=== PATIENT | male | born 1965 | race Caucasian/White ===

== ENCOUNTER 2025-04-19 13:32 | Emergency (ER) | payer MEDICARE, MEDICAID, SELFPAY ==
[2025-04-19 13:51] VITALS: BP 191/81; PULSE 62; RESP 20; TEMP 36.9; O2SAT 98
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
[2025-04-19 15:06] LABS: Abs Immature Grans 0.02 10^3/uL (0.0-0.06); Absolute Basophil Count 0.01 10^3/uL (0.0-0.2); Absolute Eosinophil Count 0.01 10^3/uL (0.0-0.7); Absolute Lymphocyte Count 1.19 10^3/uL (1.2-3.4); Absolute Monocyte Count 0.48 10^3/uL (0.1-0.8); Basophils % 0.1 %; Eosinophils % 0.1 %; HCT 43.5 % (40.0-50.0); HGB 14.9 g/dL (13.5-17.5); Immature Grans % 0.2 %; Lymphocytes % 14.9 %; MCH 29.5 pg (27.0-33.0); MCHC 34.3 % (32.0-36.0); MCV 86 fL (80-95); MPV 10.6 fL (8.0-11.0); Neutrophils % 78.7 %; Platelet Count 184 10^3/uL (130-400); RBC 5.05 10^6/uL (4.36-5.78); RDW 12.5 % (11.8-14.1); RDW-SD 39.3 fL; WBC 8.01 10^3/uL (4.4-10.8)
[2025-04-19 15:40] LABS: ALT 30 U/L (16-63); AST 19 U/L (15-37); Albumin 3.8 g/dL (3.4-5.0); Alkaline Phosphatase 88 U/L (46-116); Anion Gap 7.8 mmol/L (3-11); BUN 12 mg/dL (7-18); Bilirubin, Total 0.3 mg/dL (0.2-1.0); CO2 26.2 mmol/L (21.0-32.0); CREATININE 0.8 mg/dL (0.70-1.30); Chloride 105 mmol/L (98-107); Estimated GFR 100.69 (mL/min/1.73m2); Glucose 136 mg/dL (74-106); Potassium 3.8 mmol/L (3.5-5.1); Sodium 139 mmol/L (136-145); TSH (W/Ref FT4) 0.26 uIU/mL (0.36-3.74); Total Protein 7.2 g/dL (6.4-8.2)
[2025-04-19 15:45] LABS: *AMPHETAMINES SCREEN URINE Negative (Negative); *BARBITURATES SCREEN URINE Negative (Negative); *BENZODIAZEPINES SCREEN URINE Negative (Negative); Cannabinoids THC Positive (Negative); Cocaine Screen,Urine Negative (Negative); METHADONE URINE SCREEN Positive (Negative); OPIATES URINE SCREEN Negative (Negative); Tricyclic Antidepressants Negative (Negative)
[2025-04-19 15:46] LABS: ETHANOL BLOOD < 3.0 mg/dL (<10)
[2025-04-19 16:11] LABS: FREE T4 1.19 ng/dL (0.76-1.46)
[2025-04-19 16:25] LABS: Salicylate 3.8 mg/dL (<2.8)
[2025-04-19 16:26] LABS: Acetaminophen < 2 ug/mL (10-30)
--- NOTE | 2025-04-19 17:02 | CMSP_ITS ---
Date of service: 04/19/25 Time of Service: 17:02 Care Management Safety Plan Status Status: Voluntary Reason for Wait Reason for Wait: Inpatient Admission Safety Plan Safety Plan: VOLUNTARY FOR INPATIENT PSYCHIATRIC STABILIZATION.? Patient is appropriate in all interactions since arriving at [facility]; Pt has demonstrated appropriate coping and communication skills, has articulated his or her needs and concerns and is fully engaged during staff interactions. Safety plan has been established with patient, and care team, to adhere to patient goals, identify restrictions based on behavioral status, address nutrition, and determine allowed personal belongings, tools for hygiene and personal care. Determine level of activity including ambulation, level of superv ision, visitors, and determine privileges based on behaviors and level of engagement by pt. VOLUNTARY SAFETY PLAN: 1. Will remain on suicide precautions, in paper clothes 2. Will remain in Zone B under direct supervision of one-on-one staff at all times provided by [employer]; TAMELA, LEAD ATG DEVELOPER fence erector. 3. May have paper cups, plates, finger foods as well as a cardboard spoon with which to eat meals. 4. Follow [facility] Management of the Admitted Behavioral Health Patient policy. 5. Shower available in Zone B without restriction. 6. Personal belongings-soft items permitted at RN discretion. 7. Visitors- supportive visitors, at RN discretion. 8. Activities: soft cart items, hospital tablets (Netflix/[place]+/music) approved per RN discretion. 9.? Bathroom available in Zone B without restriction. 10. Phone: limited to [facility] cordless phone, at RN discretion. Due to VOLUNTARY status, if patient wishes to leave [facility], staff will contact [facility] Crisis Screener ([phone]) and Staff Nuclear Medicine Technologist ([phone]) as soon as possible. In the event of elopement, notify [facility] Police ([phone]). Patient is currently voluntarily at [facility] and seeking inpatient admission when a bed becomes available. [facility] Frontline Reading Specialist will continue seeking placement. Please contact the Staff Nuclear Medicine Technologist ([phone]) and [facility] Reading Specialist ([phone]) for any needed changes in the Safety Plan. Safety plan has been provided to interdepartmental care team.
--- NOTE | 2025-04-19 17:02 | PDOC.CMSAFE ---
Date of service: 04/19/25 Time of Service: 17:02 Care Management Safety Plan Status Status: Voluntary Reason for Wait Reason for Wait: Inpatient Admission Safety Plan Safety Plan: VOLUNTARY FOR INPATIENT PSYCHIATRIC STABILIZATION.? Patient is appropriate in all interactions since arriving at [facility]; Pt has demonstrated appropriate coping and communication skills, has articulated his or her needs and concerns and is fully engaged during staff interactions. Safety plan has been established with patient, and care team, to adhere to patient goals, identify restrictions based on behavioral status, address nutrition, and determine allowed personal belongings, tools for hygiene and personal care. Determine level of activity including ambulation, level of supervision, visitors, and determine privileges based on behaviors and level of engagement by pt. VOLUNTARY SAFETY PLAN: 1. Will remain on suicide precautions, in paper clothes 2. Will remain in Zone B under direct supervision of one-on-one staff at all times provided by [employer]; TAMELA, TRIGONOMETRY TEACHER employee relations director. 3. May have paper cups, plates, finger foods as well as a cardboard spoon with which to eat meals. 4. Follow [facility] Management of the Admitted Behavioral Health Patient policy. 5. Shower available in Zone B without restriction. 6. Personal belongings-soft items permitted at RN discretion. 7. Visitors- supportive visitors, at RN discretion. 8. Activities: soft cart items, hospital tablets (Netflix/[place]+/music) approved per RN discretion. 9.? Bathroom available in Zone B without restriction. 10. Phone: limited to [facility] cordless phone, at RN discretion. Due to VOLUNTARY status, if patient wishes to leave [facility], staff will contact [facility] Crisis Screener ([phone]) and Employee Placement Specialist ([phone]) as soon as possible. In the event of elopement, notify [facility] Police ([phone]). Patient is currently voluntarily at [facility] and seeking inpatient admission when a bed becomes available. [facility] Frontline Director Of Alumni Relations will continue seeking placement. Please contact the Employee Placement Specialist ([phone]) and [facility] Director Of Alumni Relations ([phone]) for any needed changes in the Safety Plan. Safety plan has been provided to interdepartmental care team.
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
[2025-04-19 20:02] VITALS: BP 149/74
[2025-04-19] MEDS: Gabapentin 400 MG CAP 800 MG PO (22:39)
[2025-04-19] MEDS: OLANZapine 5 MG TAB 15 MG PO (22:41)
[2025-04-19] MEDS: Famotidine 20 MG TAB 40 MG PO (22:43)
[2025-04-20 08:22] VITALS: BP 162/78; PULSE 48; RESP 16; TEMP 35.8; O2SAT 99
[2025-04-20] MEDS: Rosuvastatin 20 MG TAB PO (08:40)
[2025-04-20] MEDS: buPROPion-CR 150 MG TABCR PO (08:40)
[2025-04-20] MEDS: Gabapentin 400 MG CAP 800 MG PO ×3 (08:40→20:14)
[2025-04-20] MEDS: metFORMIN 500 MG TAB PO (08:40)
[2025-04-20] MEDS: Lisinopril 20 MG TAB PO (08:40)
[2025-04-20] MEDS: Tamsulosin 0.4 MG CAPCR PO (08:40)
[2025-04-20] MEDS: Methadone Liquid 10 MG/ML 165 MG PO (08:41)
--- NOTE | 2025-04-20 09:28 | ED.PSYCHBOAR ---
Date of service: 04/20/25 Time of Service: 09:28 Psychiatric Border Handoff Update Brief Story: Suicidal with plan. Pending placement. Patient stable throughout the night with no interventions. Patient stable throughout dayshift as well with no interventions needed. Patient doing well. Status: voluntary Able to leave: would need physician/KALIN and crisis evaluation prior to leaving Behavioral Concerns: None Potential Disposition: Placement referrals have been made Mediation Reconciliation performed: Yes Code Status ordered: Yes Diet ordered: Yes Discharge Plan Discharge Details Chief Complaint: PsychEval Clinical Impression: Suicide ideation, Depression Primary Care Provider: Unknown,Unknown ED Provider: Kyle Dave Home Meds and New Rx's Prescriptions: No Action methadone 10 mg/5 mL solution 165 mg PO DAILY rosuvastatin [Crestor] 20 mg tablet 20 mg PO DAILY tamsulosin [Flomax] 0.4 mg capsule 0.4 mg PO DAILY gabapentin 400 mg capsule 800 mg PO TID famotidine 40 mg tablet 40 mg PO QHS lisinopril 20 mg tablet 20 mg PO DAILY olanzapine 15 mg tablet 15 mg PO QHS metformin 500 mg tablet 500 mg PO DAILY bupropion HCl [Wellbutrin SR] 150 mg tablet sustained-release 12 hr 150 mg PO DAILY
--- NOTE | 2025-04-20 12:50 | MHPN_ITS ---
Date of service: 04/20/25 Time of Service: 11:00 Mental Health Emergency Note Release [facility] release signed:: Yes Reason for Visit As of yesterday the client is new to [facility]. The client reports that he currently receives some outpatient services through [facility], a mental health agency in [place], [place] as he previously lived with his sister in [place], [place]. The client reports that he is diagnosed with PTSD, Schizophrenia, and bi-polar disorder. The client reports that he has been hospitalized at [facility] in [place] about 10 years ago after an intentional overdose. Yesterday the client presented to [facility] ED with SI, plan and intent 03/10. The client is currently at [facility] ED seeking voluntary placement. This teletypewriter installer completes daily re-assessment face to face at bedside. In the last 2 weeks has the pt presented for ES prior to today?: No Impression Per WARD Phillips's note from the clients initial assessment yesterday 04/19: The client is a 59 y/o single, male. He had been living with his sister in an unsupportive environment. He recently moved in with his niece who is trying to pursue guardianship of the client. She reports being his current POA. The client is new to [facility] He reports a significant HX of trauma and inpatient MH treatment stays; 20+ with the most recent being last year at [facility]. The client has been diagnosed with ADHD, PTSD, Schizophrenia, and Bipolar. He is unable to recall his current medication list but reports he has not taken his medications in 4-5 weeks. The client is working on getting a new PCP with the [facility]. He cannot recall the therapist he is suppose to see and denies having a psychiatrist. His niece, Yesenia and his Sienah family are his only natural supports at this time. Today the client is sitting in the common area of zone b at [facility] playing cards with a staff member. The client reports that he is doing better than he was yesterday, but still feels like he needs inpatient treatment to get stabilized. The client reports that two days ago he had a plan to use his firearm to end his life, however there was something wrong with the bullets and the Jehovah witnesses were knocking on the door. The client reports that his appetite is still poor and that he had difficulty falling asleep last night, however once he was asleep he was able to get a few hours. The client is interested in a therapy and psychiatry referral for [facility], which this teletypewriter installer will complete. Plan/Disposition Recommended Disposition: Hospitalization facilities contacted. Plan: The client will remain at [facility] ED seeking voluntary inpatient treatment. Referrals have been sent to , [facility], , and [facility] transfer station, no beds av ailable at this time. The client will be re-assessed daily until placement is secured or he is able to be safety planned back to the community. Person reported agreement to plan: Yes Facilities contacted if Applicable [facility] Not accepted, No bed available [facility] Not accepted, No bed available, [facility] Not accepted, No bed available [facility] Not accepted, No bed available Reports/communication Outcome discussed with: ED/Personnel (Huddle completed with zone b staff, career technical education teacher, and ED charge nurse)
--- NOTE | 2025-04-20 12:50 | PDOC.MHPN2 ---
Date of service: 04/20/25 Time of Service: 11:00 Mental Health Emergency Note Release [facility] release signed:: Yes Reason for Visit As of yesterday the client is new to [facility]. The client reports that he currently receives some outpatient services through [facility], a mental health agency in [place], [place] as he previously lived with his sister in [place], [place]. The client reports that he is diagnosed with PTSD, Schizophrenia, and bi-polar disorder. The client reports that he has been hospitalized at [facility] in [place] about 10 years ago after an intentional overdose. Yesterday the client presented to [facility] ED with SI, plan and intent 03/10. The client is currently at [facility] ED seeking voluntary placement. This newswriter completes daily re-assessment face to face at bedside. In the last 2 weeks has the pt presented for ES prior to today?: No Impression Per WARD Phillips's note from the clients initial assessment yesterday 04/19: The client is a 59 y/o single, male. He had been living with his sister in an unsupportive environment. He recently moved in with his niece who is trying to pursue guardianship of the client. She reports being his current POA. The client is new to [facility] He reports a significant HX of trauma and inpatient MH treatment stays; 20+ with the most recent being last year at [facility]. The client has been diagnosed with ADHD, PTSD, Schizophrenia, and Bipolar. He is unable to recall his current medication list but reports he has not taken his medications in 4-5 weeks. The client is working on getting a new PCP with the [facility]. He cannot recall the therapist he is suppose to see and denies having a psychiatrist. His niece, Yesenia and his [place] family are his only natural supports at this time. Today the client is sitting in the common area of zone b at [facility] playing cards with a staff member. The client reports that he is doing better than he was yesterday, but still feels like he needs inpatient treatment to get stabilized. The client reports that two days ago he had a plan to use his firearm to end his life, however there was something wrong with the bullets and the Jehovah witnesses were knocking on the door. The client reports that his appetite is still poor and that he had difficulty falling asleep last night, however once he was asleep he was able to get a few hours. The client is interested in a therapy and psychiatry referral for [facility], which this newswriter will complete. Plan/Disposition Recommended Disposition: Hospitalization facilities contacted. Plan: The client will remain at [facility] ED seeking voluntary inpatient treatment. Referrals have been sent to , [facility], , and [facility] transfer station, no beds available at this time. The client will be re-assessed daily until placement is secured or he is able to be safety planned back to the community. Person reported agreement to plan: Yes Facilities contacted if Applicable [facility] Not accepted, No bed available [facility] Not accepted, No bed available, [facility] Not accepted, No bed available [facility] Not accepted, No bed available Reports/communication Outcome discussed with: ED/Personnel (Huddle completed with zone b staff, acute care occupational therapist, and ED charge nurse)
--- NOTE | 2025-04-20 12:56 | CMSP_ITS ---
Date of service: 04/20/25 Time of Service: 12:56 Care Management Safety Plan Status Status: Voluntary Reason for Wait Reason for Wait: Inpatient Admission Safety Plan Safety Plan: VOLUNTARY FOR INPATIENT PSYCHIATRIC STABILIZATION.? Patient is appropriate in all interactions since arriving at [facility]; Pt has demonstrated appropriate coping and communication skills, has articulated his or her needs and concerns and is fully engaged during staff interactions. Safety plan has been established with patient, and care team, to adhere to patient goals, identify restrictions based on behavioral status, address nutrition, and determine allowed personal belongings, tools for hygiene and personal care. Determine level of activity including ambulation, level of superv ision, visitors, and determine privileges based on behaviors and level of engagement by pt. VOLUNTARY SAFETY PLAN: 1. Will remain on suicide precautions, in paper clothes 2. Will remain in Zone B under direct supervision of one-on-one staff at all times provided by [employer]; TAMELA, HEALTH PROFESSOR elevator inspector. 3. May have paper cups, plates, finger foods as well as a cardboard spoon with which to eat meals. 4. Follow [facility] Management of the Admitted Behavioral Health Patient policy. 5. Shower available in Zone B without restriction. 6. Personal belongings-soft items permitted at RN discretion. 7. Visitors- supportive visitors, at RN discretion. 8. Activities: soft cart items, hospital tablets (Netflix/Aiken+/music) approved per RN discretion. 9.? Bathroom available in Zone B without restriction. 10. Phone: limited to [facility] cordless phone, at RN discretion. Due to VOLUNTARY status, if patient wishes to leave [facility], staff will contact [facility] Crisis Screener ([phone]) and Shot Polisher And Inspector ([phone]) as soon as possible. In the event of elopement, notify [facility] Police ([phone]). Patient is currently voluntarily at [facility] and seeking inpatient admission when a bed becomes available. [facility] Frontline Manager Summer will continue seeking placement. Please contact the Shot Polisher And Inspector ([phone]) and [facility] Manager Summer ([phone]) for any needed changes in the Safety Plan. Safety plan has been provided to interdepartmental care team.
--- NOTE | 2025-04-20 12:56 | PDOC.CMSAFE ---
Date of service: 04/20/25 Time of Service: 12:56 Care Management Safety Plan Status Status: Voluntary Reason for Wait Reason for Wait: Inpatient Admission Safety Plan Safety Plan: VOLUNTARY FOR INPATIENT PSYCHIATRIC STABILIZATION.? Patient is appropriate in all interactions since arriving at [facility]; Pt has demonstrated appropriate coping and communication skills, has articulated his or her needs and concerns and is fully engaged during staff interactions. Safety plan has been established with patient, and care team, to adhere to patient goals, identify restrictions based on behavioral status, address nutrition, and determine allowed personal belongings, tools for hygiene and personal care. Determine level of activity including ambulation, level of supervision, visitors, and determine privileges based on behaviors and level of engagement by pt. VOLUNTARY SAFETY PLAN: 1. Will remain on suicide precautions, in paper clothes 2. Will remain in Zone B under direct supervision of one-on-one staff at all times provided by [employer]; TAMELA, SENIOR PROGRAMMER senior programmer. 3. May have paper cups, plates, finger foods as well as a cardboard spoon with which to eat meals. 4. Follow [facility] Management of the Admitted Behavioral Health Patient policy. 5. Shower available in Zone B without restriction. 6. Personal belongings-soft items permitted at RN discretion. 7. Visitors- supportive visitors, at RN discretion. 8. Activities: soft cart items, hospital tablets (Netflix/[place]+/music) approved per RN discretion. 9.? Bathroom available in Zone B without restriction. 10. Phone: limited to [facility] cordless phone, at RN discretion. Due to VOLUNTARY status, if patient wishes to leave [facility], staff will contact [facility] Crisis Screener ([phone]) and Furniture Fabricator ([phone]) as soon as possible. In the event of elopement, notify [facility] Police ([phone]). Patient is currently voluntarily at [facility] and seeking inpatient admission when a bed becomes available. [facility] Frontline Fiberglass Product Tester will continue seeking placement. Please contact the Furniture Fabricator ([phone]) and [facility] Fiberglass Product Tester ([phone]) for any needed changes in the Safety Plan. Safety plan has been provided to interdepartmental care team.
--- NOTE | 2025-04-20 13:00 | PDOC.CMPRO ---
Date of service: 04/20/25 Time of Service: 13:00 Care Management Progress Note Progress Note Text Progress Note Text: CM huddled with [facility] and [facility] staff regarding Luann's plan of care. Per RN, Luann has been cooperative and appropriate. His neice, Yesenia, is a good support; he has been living with her, and will plan to return to her home after discharge from the facility. Per [facility], he is reporting passive SI, and is seeking inpatient treatment. He engaged in referrals for therapy and psychiatry from [facility]. Luann is voluntary, seeking inpatient psychiatric care. Referrals were sent by [facility]; Rhoda is reviewing the referral, Reena requested documentation, which was sent, and [facility] does not have a bed available today. Safety plan in place; CM will continue to follow. Social Determinants of Health Screening Will the Patient Participate in the Screening?: Unable to obtain
[2025-04-20 14:14] VITALS: BP 154/83; PULSE 57; RESP 20; O2SAT 99
[2025-04-20] MEDS: OLANZapine 5 MG TAB 15 MG PO (20:14)
--- NOTE | 2025-04-20 22:40 | W.EDPROG ---
Date of service: 04/20/25 Time of Service: 22:40 Medical Decision Making This patient was signed out to me. Please see previous notes for H&P and initial eval. In brief, 59yo M presenting with SI, held gun to his mouth. Medically cleared, home meds ordered, pending voluntary inpatient placement. Meets involuntary criteria should he wish to leave. Overnight no acute events. Will be signed out to oncoming physican, plan remains as above. Discharge Plan Discharge Details Chief Complaint: PsychEval Clinical Impression: Suicide ideation, Depression Primary Care Provider: Unknown,Unknown ED Provider: Estela Varela Home Meds and New Rx's Prescriptions: No Action methadone 10 mg/5 mL solution 165 mg PO DAILY rosuvastatin [Crestor] 20 mg tablet 20 mg PO DAILY tamsulosin [Flomax] 0.4 mg capsule 0.4 mg PO DAILY gabapentin 400 mg capsule 800 mg PO TID famotidine 40 mg tablet 40 mg PO QHS lisinopril 20 mg tablet 20 mg PO DAILY olanzapine 15 mg tablet 15 mg PO QHS metformin 500 mg tablet 500 mg PO DAILY bupropion HCl [Wellbutrin SR] 150 mg tablet sustained-release 12 hr 150 mg PO DAILY
[2025-04-21 08:25] VITALS: BP 145/75; PULSE 58; RESP 18; TEMP 36.1; O2SAT 98
[2025-04-21] MEDS: Lisinopril 20 MG TAB PO (08:30)
[2025-04-21] MEDS: Gabapentin 400 MG CAP 800 MG PO ×3 (08:30→21:26)
[2025-04-21] MEDS: Rosuvastatin 20 MG TAB PO (08:30)
[2025-04-21] MEDS: Methadone Liquid 10 MG/ML 165 MG PO (08:30)
[2025-04-21] MEDS: metFORMIN 500 MG TAB PO (08:30)
[2025-04-21] MEDS: buPROPion-CR 150 MG TABCR PO (08:30)
[2025-04-21] MEDS: Tamsulosin 0.4 MG CAPCR PO (08:30)
--- NOTE | 2025-04-21 10:42 | ED.PSYCHBOAR ---
Date of service: 04/21/25 Time of Service: 10:42 Psychiatric Border Handoff Update Brief Story: Patient has remained stable throughout his visit. He is taking his medications, family has been well involved, and we are still awaiting placement. Placement less likely during the weekend. Status: voluntary Able to leave: would need physician/KALIN and crisis evaluation prior to leaving Behavioral Concerns: None Potential Disposition: Inpatient psych management Medical Concerns: None Mediation Reconciliation performed: Yes Code Status ordered: Yes Diet ordered: Yes Discharge Plan Discharge Details Chief Complaint: PsychEval Clinical Impression: Suicide ideation, Depression Primary Care Provider: Unknown,Unknown ED Provider: Kyle Dave Home Meds and New Rx's Prescriptions: No Action methadone 10 mg/5 mL solution 165 mg PO DAILY rosuvastatin [Crestor] 20 mg tablet 20 mg PO DAILY tamsulosin [Flomax] 0.4 mg capsule 0.4 mg PO DAILY gabapentin 400 mg capsule 800 mg PO TID famotidine 40 mg tablet 40 mg PO QHS lisinopril 20 mg tablet 20 mg PO DAILY olanzapine 15 mg tablet 15 mg PO QHS metformin 500 mg tablet 500 mg PO DAILY bupropion HCl [Wellbutrin SR] 150 mg tablet sustained-release 12 hr 150 mg PO DAILY
--- NOTE | 2025-04-21 12:04 | CMSP_ITS ---
Date of service: 04/21/25 Time of Service: 12:05 Care Management Safety Plan Status Status: Voluntary Reason for Wait Reason for Wait: Inpatient Admission Safety Plan Safety Plan: VOLUNTARY FOR INPATIENT PSYCHIATRIC STABILIZATION.? Patient is appropriate in all interactions since arriving at [facility]; Pt has demonstrated appropriate coping and communication skills, has articulated his needs and concerns and is fully engaged during staff interactions. Safety plan has been established with patient, and care team, to adhere to patient goals, identify restrictions based on behavioral status, address nutrition, and determine allowed personal belongings, tools for hygiene and personal care. Determine level of activity including ambulation, level of supervision, visitors, and determine privileges based on behaviors and level of engagement by pt. VOLUNTARY SAFETY PLAN: 1. Will remain on suicide precautions, in paper clothes 2. Will remain in Zone B under direct supervision of one-on-one staff at all times provided by [employer]; TAMELA, SPECIFICATION WRITER gymnastics coach or instructor. 3. May have paper cups, plates, finger foods as well as a cardboard spoon with which to eat meals. 4. Follow [facility] Management of the Admitted Behavioral Health Patient policy. 5. Shower available in Zone B without restriction. 6. Personal belongings-soft items permitted at RN discretion. May have his Bible . 7. Visitors- supportive visitors, at RN discretion. 8. Activities: soft cart items, hospital tablets (Netflix/Jonathan+/music) approved per RN discretion. 9.? Bathroom available in Zone B without restriction. 10. Phone: limited to [facility] cordless phone, at RN discretion. Due to VOLUNTARY status, if patient wishes to leave [facility], staff will contact [facility] Crisis Screener ([phone]) and Gear Tooth Grinding Machine Operator ([phone]) as soon as possible. In the event of elopement, notify [facility] Police ([phone]). Patient is currently voluntarily at [facility] and seeking inpatient admission when a bed becomes available. [facility] Frontline Color Buffer will continue seeking placement. Please contact the Gear Tooth Grinding Machine Operator ([phone]) and [facility] Color Buffer ([phone]) for any needed changes in the Safety Plan. Safety plan has been provided to interdepartmental care team.
--- NOTE | 2025-04-21 13:22 | PDOC.MHPN2 ---
Date of service: 04/21/25 Time of Service: 11:20 Mental Health Emergency Note Release [facility] release signed:: Yes Reason for Visit The client is new to [facility] and this film writer. Per client report to [facility] Parul the currently receives some outpatient services through [facility], a mental health agency in [place], [place] as he previously lived with his sister in [place], [place]. The client reports that he is diagnosed with PTSD, Schizophrenia, and bi-polar disorder. The client reports that he has been hospitalized at [facility] in [place] about 10 years ago after an intentional overdose. The client presented to [facility] ED 04/19/25 with SI, plan and intent 03/10. The client is currently at [facility] Zone B seeking voluntary placement. In the last 2 weeks has the pt presented for ES prior to today?: No Client Information Client is: New Well Housed: Yes Non Suicidal Self Injury Current: No History: yes, The client reports engaging in NSSI by cutting and burning when he was a teenager. Safety Risk/Harm to Self or Others Current Ideation to Harm Self or Others: No Risk: Does risk to harm exist?: No Risk: Moderate Risk Duty to warn indicated: No Asssessment/Mental Status Appearance: Unremarkable Attitude: Cooperative and Friendly Behavior: Unremarkable Speech: Normal Affect: Cogruent with mood Mood: Other (positive) Thought process: Goal directed Hallucinations: No Delusions: No Attention: Unremarkable Perception: Not impaired Orientation: Fully orientated Memory: Intact Insight: Good Judgement: Fair Additional Issues: Assaultive/Threatening Behavior: No Medical Concerns: No Client engaged in active self harm w/weapon: No Threatening to run away: No Child reported abuse/neglect: No Voluntarily presenting for services: Yes Domestic violence is a concern: No Extreme Psychosis or extreme behavior is present: No Impression The client is a 59 year old biological male who resides in [place], [place]. The client presents in a unremarkable appearance wearing blue paper hospital clothing. Affect is congruent with mood. Client is cooperative and friendly with this clinician; they report their mood as positive. Thought process appears goal directed. There are no delusions observed. The client denied auditory and visual hallucinations. Cognitive assessment reveals orientation to person, place and time. The client reports doing better today and stating that he wants to turn his life around and be a positive person. The client presents future oriented by stating he wants to start doing the things he use to do that make him happy. The client states I don't want to hurt the people that care about me. I didn't realize how many people love me. The client expresses wanting to get back into the Jehovah Witness. The client denies SI, HI and NSSI currently. The client states he has a past history of suicide attempts and NSSI. The client stated he did not want to talk about the details as it bring him back to a dark place and does not want to think about that. The client expresses still wanting to go back to inpatient treatment to get support around his mental health. Plan/Disposition Recommended Disposition: Hospitalization facilities contacted. Plan: The client will remain in the [facility] Zone B until placement is secured at a inpatient facility. The client will receive daily assessments from emergency services until placed. Reports/communication Outcome discussed with: ED/Personnel
--- NOTE | 2025-04-21 16:24 | W.ED.FU ---
Date of service: 04/21/25 Time of Service: 16:00 Follow Up Plan: Assumed care of patient. Awaiting placement. No issues identified during shift.
[2025-04-21] MEDS: Famotidine 20 MG TAB 40 MG PO (21:26)
[2025-04-21] MEDS: OLANZapine 5 MG TAB 15 MG PO (21:26)
[2025-04-22] MEDS: Lisinopril 20 MG TAB PO (07:58)
[2025-04-22] MEDS: Tamsulosin 0.4 MG CAPCR PO (07:58)
[2025-04-22] MEDS: metFORMIN 500 MG TAB PO (07:59)
[2025-04-22] MEDS: Gabapentin 400 MG CAP 800 MG PO ×3 (07:59→20:03)
[2025-04-22] MEDS: buPROPion-CR 150 MG TABCR PO (08:00)
[2025-04-22] MEDS: Methadone Liquid 10 MG/ML 165 MG PO (08:00)
[2025-04-22] MEDS: Rosuvastatin 20 MG TAB PO (08:00)
[2025-04-22 08:05] VITALS: BP 147/84; PULSE 68; RESP 16; TEMP 36.4; O2SAT 98
--- NOTE | 2025-04-22 08:34 | ED.PSYCHBOAR ---
Date of service: 04/22/25 Time of Service: 09:45 Psychiatric Border Handoff Update Brief Story: Patient remains notably stable. Pending placement. No interventions needed. Status: voluntary Able to leave: would need physician/KALIN and crisis evaluation prior to leaving Behavioral Concerns: No, notably stable Potential Disposition: Pending placement Medical Concerns: None Mediation Reconciliation performed: Yes Code Status ordered: Yes Diet ordered: Yes Discharge Plan Discharge Details Chief Complaint: PsychEval Clinical Impression: Suicide ideation, Depression Primary Care Provider: Unknown,Unknown ED Provider: Kyle Dave Home Meds and New Rx's Prescriptions: No Action methadone 10 mg/5 mL solution 165 mg PO DAILY rosuvastatin [Crestor] 20 mg tablet 20 mg PO DAILY tamsulosin [Flomax] 0.4 mg capsule 0.4 mg PO DAILY gabapentin 400 mg capsule 800 mg PO TID famotidine 40 mg tablet 40 mg PO QHS lisinopril 20 mg tablet 20 mg PO DAILY olanzapine 15 mg tablet 15 mg PO QHS metformin 500 mg tablet 500 mg PO DAILY bupropion HCl [Wellbutrin SR] 150 mg tablet sustained-release 12 hr 150 mg PO DAILY
--- NOTE | 2025-04-22 12:34 | PDOC.MHPN2 ---
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 Per client report to [facility] Parul the currently receives some outpatient services through [facility], a mental health agency in [place], [place] as he previously lived with his sister in [place], [place]. The client reports that he is diagnosed with PTSD, Schizophrenia, and bi-polar disorder. The client reports that he has been hospitalized at [facility] in [place] about 10 years ago after an intentional overdose. The client presented to [facility] ED 04/19/25 with SI, plan and intent 03/10. The client is currently at [facility] Zone B seeking voluntary placement In the last 2 weeks has the pt presented for ES prior to today?: No Client Information Client is: New Well Housed: Yes Non Suicidal Self Injury Current: No History: yes, The client reports engaging in NSSI by cutting and burning when he was a teenager. Safety Risk/Harm to Self or Others Current Ideation to Harm Self or Others: No Risk: Does risk to harm exist?: yes. Access to means: No. Risk: Moderate Risk Duty to warn indicated: No Asssessment/Mental Status Appearance: Unremarkable Attitude: Cooperative and Friendly Behavior: Unremarkable Speech: Normal Affect: Cogruent with mood Mood: Other (stable) Thought process: Goal directed Hallucinations: No Delusions: No Attention: Unremarkable Perception: Not impaired Orientation: Fully orientated Memory: Intact Insight: Fair Judgement: Fair Neurovegetative Symptoms Sleep: No change Appetitie: No change Interests: No change Energy: No change Libido: Not applicable Additional Issues: Assaultive/Threatening Behavior: No Medical Concerns: No Client engaged in active self harm w/weapon: No Threatening to run away: No Child reported abuse/neglect: No Voluntarily presenting for services: Yes Domestic violence is a concern: No Extreme Psychosis or extreme behavior is present: No Impression The client is a 59 year old biological male who resides in [place], [place]. The client presents in a unremarkable appearance wearing blue paper hospital clothing. Affect is congruent with mood. Client is cooperative and friendly with this clinician; they report their mood as positive. Thought process appears goal directed. There are no delusions observed. The client denied auditory and visual hallucinations. Cognitive assessment reveals orientation to person, place and time. The client reports he was restless last night when trying to sleep. The client states he is still eating well at the hospital. The client states he is still feeling positive and good. The client shared that he has always felt alone in the world since he was a kid, even in rooms full of people. The client shared he use to have to drink to gain courage. The client denied SI, HI and NSSI to this staff writer. The client shared he had some fleeting suicidal thoughts earlier this morning. The client is hopeful that his niece might come and visit him today. The client is interested in getting set up with therapy upon being released from treatment. Plan/Disposition Recommended Disposition: Hospitalization facilities contacted. Plan: The client will remain in the [facility] Zone B until placement is secured at a inpatient facility. The client will receive daily assessments from emergency services until placed. Reports/communication Outcome discussed with: ED/Personnel
--- NOTE | 2025-04-22 15:58 | CMSP_ITS ---
Date of service: 04/22/25 Time of Service: 15:58 Care Management Safety Plan Status Status: Voluntary Reason for Wait Reason for Wait: Inpatient Admission Safety Plan Safety Plan: VOLUNTARY FOR INPATIENT PSYCHIATRIC STABILIZATION.? Patient is appropriate in all interactions since arriving at [facility]; Pt has demonstrated appropriate coping and communication skills, has articulated his needs and concerns and is fully engaged during staff interactions. Safety plan has been established with patient, and care team, to adhere to patient goals, identify restrictions based on behavioral status, address nutrition, and determine allowed personal belongings, tools for hygiene and personal care. Determine level of activity including ambulation, level of supervision, visitors, and determine privileges based on behaviors and level of engagement by pt. VOLUNTARY SAFETY PLAN: 1. Will remain on suicide precautions, in paper clothes 2. Will remain in Zone B under direct supervision of one-on-one staff at all times provided by [employer]; TAMELA, ADULT PROBATION OFFICER accountancy professor. 3. May have paper cups, plates, finger foods as well as a cardboard spoon with which to eat meals. 4. Follow [facility] Management of the Admitted Behavioral Health Patient policy. 5. Shower available in Zone B without restriction. 6. Personal belongings-soft items permitted at RN discretion. May have his Bible . 7. Visitors- supportive visitors, at RN discretion. 8. Activities: soft cart items, hospital tablets (Netflix/Jonathan+/music) approved per RN discretion. 9.? Bathroom available in Zone B without restriction. 10. Phone: limited to [facility] cordless phone, at RN discretion. Due to VOLUNTARY status, if patient wishes to leave [facility], staff will contact [facility] Crisis Screener ([phone]) and Service Support Representative ([phone]) as soon as possible. In the event of elopement, notify [facility] Police ([phone]). Patient is currently voluntarily at [facility] and seeking inpatient admission when a bed becomes available. [facility] Frontline Die Drawing Checker will continue seeking placement. Please contact the Service Support Representative ([phone]) and [facility] Die Drawing Checker ([phone]) for any needed changes in the Safety Plan. Safety plan has been provided to interdepartmental care team.
--- NOTE | 2025-04-22 15:58 | PDOC.CMSAFE ---
Date of service: 04/22/25 Time of Service: 15:58 Care Management Safety Plan Status Status: Voluntary Reason for Wait Reason for Wait: Inpatient Admission Safety Plan Safety Plan: VOLUNTARY FOR INPATIENT PSYCHIATRIC STABILIZATION.? Patient is appropriate in all interactions since arriving at [facility]; Pt has demonstrated appropriate coping and communication skills, has articulated his needs and concerns and is fully engaged during staff interactions. Safety plan has been established with patient, and care team, to adhere to patient goals, identify restrictions based on behavioral status, address nutrition, and determine allowed personal belongings, tools for hygiene and personal care. Determine level of activity including ambulation, level of supervision, visitors, and determine privileges based on behaviors and level of engagement by pt. VOLUNTARY SAFETY PLAN: 1. Will remain on suicide precautions, in paper clothes 2. Will remain in Zone B under direct supervision of one-on-one staff at all times provided by [employer]; TAMELA, PBX WIRE CHIEF cloth stock sorter. 3. May have paper cups, plates, finger foods as well as a cardboard spoon with which to eat meals. 4. Follow [facility] Management of the Admitted Behavioral Health Patient policy. 5. Shower available in Zone B without restriction. 6. Personal belongings-soft items permitted at RN discretion. May have his Bible. 7. Visitors- supportive visitors, at RN discretion. 8. Activities: soft cart items, hospital tablets (Netflix/Jonathan+/music) approved per RN discretion. 9.? Bathroom available in Zone B without restriction. 10. Phone: limited to [facility] cordless phone, at RN discretion. Due to VOLUNTARY status, if patient wishes to leave [facility], staff will contact [facility] Crisis Screener ([phone]) and Neighborhood Conservation Officer ([phone]) as soon as possible. In the event of elopement, notify [facility] Police ([phone]). Patient is currently voluntarily at [facility] and seeking inpatient admission when a bed becomes available. [facility] Frontline Delimer will continue seeking placement. Please contact the Neighborhood Conservation Officer ([phone]) and [facility] Delimer ([phone]) for any needed changes in the Safety Plan. Safety plan has been provided to interdepartmental care team.
--- NOTE | 2025-04-22 16:28 | W.EDPROG ---
Date of service: 04/22/25 Time of Service: 16:30 Medical Decision Making Assumed care of patient. Awaiting psychiatric placement. No new issue iddentified. Discharge Plan Discharge Details Chief Complaint: PsychEval Clinical Impression: Suicide ideation, Depression Primary Care Provider: Unknown,Unknown ED Provider: Nicole Queen Home Meds and New Rx's Prescriptions: No Action methadone 10 mg/5 mL solution 165 mg PO DAILY rosuvastatin [Crestor] 20 mg tablet 20 mg PO DAILY tamsulosin [Flomax] 0.4 mg capsule 0.4 mg PO DAILY gabapentin 400 mg capsule 800 mg PO TID famotidine 40 mg tablet 40 mg PO QHS lisinopril 20 mg tablet 20 mg PO DAILY olanzapine 15 mg tablet 15 mg PO QHS metformin 500 mg tablet 500 mg PO DAILY bupropion HCl [Wellbutrin SR] 150 mg tablet sustained-release 12 hr 150 mg PO DAILY
[2025-04-22] MEDS: OLANZapine 5 MG TAB 15 MG PO (20:03)
[2025-04-22] MEDS: Famotidine 20 MG TAB 40 MG PO (20:03)
[2025-04-23 06:35] VITALS: BP 143/82; PULSE 75; RESP 18; TEMP 36.3; O2SAT 97
--- NOTE | 2025-04-23 07:22 | ED.PROG1_ITS ---
Date of service: 04/23/25 Time of Service: 07:22 Psychiatric Border Handoff Update Brief Story: This is a 59-year-old male off medications with depression and suicidal ideation. Patient has had prior reported attempts of suicide. Status: voluntary Able to leave: would need physician/KALIN and crisis evaluation prior to leaving Behavioral Concerns: None Potential Disposition: Referral sent Barriers to Disposition: Pending placement Medical Concerns: None Mediation Reconciliation performed: Yes Code Status ordered: Yes Diet ordered: Yes Future to do Items: Awaiting placement. 11:34 AM I completed daily huddle with [facility] and [facility]. Patient has been adherent with medications. Patient was denied by [place]. He is being considered by the [place] [facility]. There is also possibility of placement at a care bed. 3:25 PM I signed transfer paperwork to have the patient transferred to the care bed. Per the patient's nurse Velia the care bed bed is full. Patient requesting senna. 4 PM I spoke with Rosa from [facility]. There is a possibility patient will go to a care bed on 04/24. No behavioral issues on my shift. Signed patient out to Dr. Dave. Discharge Plan Discharge Details Chief Complaint: PsychEval Clinical Impression: Suicide ideation, Depression Primary Care Provider: Unknown,Unknown ED Provider: Marcelino Schaeffer [facility] Meds and New Rx's Prescriptions: No Action methadone 10 mg/5 mL solution 165 mg PO DAILY rosuvastatin [Crestor] 20 mg tablet 20 mg PO DAILY tamsulosin [Flomax] 0.4 mg capsule 0.4 mg PO DAILY gabapentin 400 mg capsule 800 mg PO TID famotidine 40 mg tablet 40 mg PO QHS lisinopril 20 mg tablet 20 mg PO DAILY olanzapine 15 mg tablet 15 mg PO QHS metformin 500 mg tablet 500 mg PO DAILY bupropion HCl [Wellbutrin SR] 150 mg tablet sustained-release 12 hr 150 mg PO DAILY
[2025-04-23] MEDS: Gabapentin 400 MG CAP 800 MG PO ×3 (07:49→21:09)
[2025-04-23] MEDS: Rosuvastatin 20 MG TAB PO (07:49)
[2025-04-23] MEDS: metFORMIN 500 MG TAB PO (07:50)
[2025-04-23] MEDS: buPROPion-CR 150 MG TABCR PO (07:50)
[2025-04-23] MEDS: Lisinopril 20 MG TAB PO (07:50)
[2025-04-23] MEDS: Tamsulosin 0.4 MG CAPCR PO (07:50)
[2025-04-23] MEDS: Methadone Liquid 10 MG/ML 165 MG PO (08:18)
--- NOTE | 2025-04-23 12:25 | PDOC.MHPN2 ---
Date of service: 04/23/25 Time of Service: 12:26 Mental Health Emergency Note Release [facility] release signed:: Yes Reason for Visit Per previous assessments, the client is new to [facility] and this clinician. Per client report to [facility] Parul the currently receives some outpatient services through [facility], a mental health agency in [place], [place] as he previously lived with his sister in [place], [place]. The client reports that he is diagnosed with PTSD, Schizophrenia, and bi-polar disorder. The client reports that he has been hospitalized at [facility] in [place] about 10 years ago after an intentional overdose. The client presented to [facility] ED 04/19/25 with SI, plan and intent 03/10. The client is currently at [facility] Zone B seeking voluntary placement. This assessment is completed face to face at bedside. In the last 2 weeks has the pt presented for ES prior to today?: Unknown Impression The client is a 59 y/o single, male. He had been living with his sister in an unsupportive environment. He recently moved in with his niece who is trying to pursue guardianship of the client. She reports being his current POA. The client is new to [facility]. Today the client presents lying down but quickly arose when this clinician entered the room. He is engaged in the assessment and tells some stories about his past trauma like cleaning up after his father took his own life. He reported that he is feeling better today and attributes that to the kindness of the staff at [facility], being consistent with his medications again which he reports he has a long history of not being consistent. He also attributes his change in mood to praying and reading his bible and building his self-esteem back. 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 He did report that his sleep was not good as he found himself waking up in a seated position. He notes that he has always struggled with sleep except for when he was on a certain medication and then that was discontinued wit the changing of his providers. Plan/Disposition Recommended Disposition: Crisis bed, facility contacted. Status of Crisis Bed acceptance: Pending review and Hospitalization facilities contacted. Plan: The client will remain at [facility] pending acceptance to a hospital or crisis bed. A referral for the CARE Bed will be put in today. Reports/communication Outcome discussed with: ED/Personnel
[2025-04-23] MEDS: Senna TAB 1 TAB PO (15:41)
[2025-04-23 19:07] VITALS: BP 143/73; PULSE 73; RESP 18; TEMP 36.1; O2SAT 97
--- NOTE | 2025-04-23 19:42 | CMSP_ITS ---
Date of service: 04/23/25 Time of Service: 19:43 Care Management Safety Plan Status Status: Voluntary Reason for Wait Reason for Wait: Inpatient Admission Safety Plan Safety Plan: VOLUNTARY FOR INPATIENT PSYCHIATRIC STABILIZATION.? Patient is appropriate in all interactions since arriving at [facility]; Pt has demonstrated appropriate coping and communication skills, has articulated his needs and concerns and is fully engaged during staff interactions. Safety plan has been established with patient, and care team, to adhere to patient goals, identify restrictions based on behavioral status, address nutrition, and determine allowed personal belongings, tools for hygiene and personal care. Determine level of activity including ambulation, level of supervision, visitors, and determine privileges based on behaviors and level of engagement by pt. VOLUNTARY SAFETY PLAN: 1. Will remain on suicide precautions, in paper clothes 2. Will remain in Zone B under direct supervision of one-on-one staff at all times provided by [employer]; TAMELA, POOL PLAYER director of architecture. 3. May have paper cups, plates, finger foods as well as a cardboard spoon with which to eat meals. 4. Follow [facility] Management of the Admitted Behavioral Health Patient policy. 5. Shower available in Zone B without restriction. 6. Personal belongings-soft items permitted at RN discretion. May have his Bible . 7. Visitors- supportive visitors, at RN discretion. 8. Activities: soft cart items, hospital tablets (Netflix/Jonathan+/music) approved per RN discretion. 9.? Bathroom available in Zone B without restriction. 10. Phone: limited to [facility] cordless phone, at RN discretion. Due to VOLUNTARY status, if patient wishes to leave [facility], staff will contact [facility] Crisis Screener ([phone]) and Territory Manager General Sales ([phone]) as soon as possible. In the event of elopement, notify [facility] Police ([phone]). Patient is currently voluntarily at [facility] and seeking inpatient admission when a bed becomes available. [facility] Frontline Data Warehousing Manager will continue seeking placement. Please contact the Territory Manager General Sales ([phone]) and [facility] Data Warehousing Manager ([phone]) for any needed changes in the Safety Plan. Safety plan has been provided to interdepartmental care team.
--- NOTE | 2025-04-23 19:43 | CMPROGNOTE_ITS ---
Date of service: 04/23/25 Time of Service: 19:43 Care Management Progress Note Progress Note Text Progress Note Text: CM huddled with [facility] and [facility] staff regarding Luann's plan of care. Per RN, Luann is reporting that he is feeling better since being here for a few days. CM provided the original and copies of Luann's advanced directives, which were completed over the weekend, to his niece, Yesenia. Per [facility], Luann is improving, but he still meets criteria for treatment. If he continues to improve and has not yet been placed, he may have the opportunity to develop a safety plan with [facility] for close follow up in the community, in the next day or two. Luann is voluntary, seeking inpatient psychiatric treatment. Referrals have been sent by [facility]; [facility] does not have any beds today, [facility] has not responded, and he has been declined by [place]. The care bed is also full at this time. Safety plan in place; CM will continue to follow. Social Determinants of Health Screening Will the Patient Participate in the Screening?: Unable to obtain
[2025-04-23] MEDS: OLANZapine 5 MG TAB 15 MG PO (21:09)
[2025-04-23] MEDS: Famotidine 20 MG TAB 40 MG PO (21:09)
[2025-04-24] MEDS: diazePAM 5 MG TAB PO (00:49)
--- NOTE | 2025-04-24 07:25 | ED.PSYCHBOAR ---
Date of service: 04/24/25 Time of Service: 07:25 Psychiatric Border Handoff Update Brief Story: This is a 59-year-old male off medications with depression and suicidal ideation. Patient has had prior reported attempts of suicide. Status: voluntary Able to leave: would need physician/KALIN and crisis evaluation prior to leaving Behavioral Concerns: None Potential Disposition: Potentially care bed Barriers to Disposition: Awaiting placement Medical Concerns: None Mediation Reconciliation performed: Yes Code Status ordered: Yes Diet ordered: Yes Future to do Items: Follow-up with [facility] human services. 9:53 AM I was in touch with Celia Escoto who called from the [facility]. She graciously agreed to accept the patient in transfer. 11:20 AM I signed transfer paperwork to have the patient transferred to the [facility]. Discharge Plan Disposition Patient Disposition: Psychiatric Hospital/Unit Specific Psychiatric Facility: [facility] Discharge Details Clinical Impression: Suicide ideation, Depression Primary Care Provider: Unknown,Unknown ED Provider: Marcelino Schaeffer [place] Meds and New Rx's Prescriptions: Continued methadone 10 mg/5 mL solution 165 mg PO DAILY rosuvastatin [Crestor] 20 mg tablet 20 mg PO DAILY tamsulosin [Flomax] 0.4 mg capsule 0.4 mg PO DAILY gabapentin 400 mg capsule 800 mg PO TID famotidine 40 mg tablet 40 mg PO QHS lisinopril 20 mg tablet 20 mg PO DAILY olanzapine 15 mg tablet 15 mg PO QHS metformin 500 mg tablet 500 mg PO DAILY bupropion HCl [Wellbutrin SR] 150 mg tablet sustained-release 12 hr 150 mg PO DAILY Discharge Instructions Additional Instructions: You were seen in the emergency department for your thoughts of self-harm. He remains voluntary. You continued taking your outpatient medications. You were transferred to the [facility].
[2025-04-24] MEDS: buPROPion-CR 150 MG TABCR PO (07:47)
[2025-04-24] MEDS: metFORMIN 500 MG TAB PO (07:48)
[2025-04-24] MEDS: Gabapentin 400 MG CAP 800 MG PO (07:48)
[2025-04-24] MEDS: Tamsulosin 0.4 MG CAPCR PO (07:48)
[2025-04-24] MEDS: Lisinopril 20 MG TAB PO (07:48)
[2025-04-24] MEDS: Rosuvastatin 20 MG TAB PO (07:48)
[2025-04-24 07:55] VITALS: BP 135/88; PULSE 73; RESP 18; TEMP 35.8; O2SAT 98
[2025-04-24] MEDS: Methadone Liquid 10 MG/ML 165 MG PO (08:19)
--- NOTE | 2025-04-24 18:01 | CMPROGNOTE_ITS ---
Date of service: 04/24/25 Time of Service: 18:01 Care Management Progress Note Progress Note Text Progress Note Text: huddled with [facility] and [facility] staff regarding Luann's plan of care. Per report, Luann was accepted at [facility] today. He transported via [employer] Applications Analyst, coordinated by ED staff. He was happy to be going to treatment. Social Determinants of Health Screening Will the Patient Participate in the Screening?: Unable to obtain
--- NOTE | 2025-04-24 18:01 | PDOC.CMPRO ---
Date of service: 04/24/25 Time of Service: 18:01 Care Management Progress Note Progress Note Text Progress Note Text: huddled with [facility] and [facility] staff regarding Luann's plan of care. Per report, Luann was accepted at [facility] today. He transported via [employer], coordinated by ED staff. He was happy to be going to treatment. Social Determinants of Health Screening Will the Patient Participate in the Screening?: Unable to obtain
== END 2025-04-24 12:06 ==
PROVIDERS: Student in an Organized Health Care Education/Training Program; Emergency Provider Emergency Medicine
DX: F32.A Depression, unspecified (principal); R45.851 Suicidal ideations
CPT/HCPCS: 99285 ×6; 00123; 80053; 80307; G0378; 80320; 80329; 84439; 84443; 85025

== ENCOUNTER 2025-05-24 11:20 | Emergency (ER) | payer MEDICARE, MEDICAID, SELFPAY ==
[2025-05-24] VITALS (11 sets, daily range): BP systolic 106–147; BP diastolic 69–84; PULSE 61–89; RESP 13–20; TEMP 36.3–36.6; O2SAT 92–97
--- NOTE | 2025-05-24 11:15 | RT.EKG_ITS ---
APPROVED REPORT Exam: Resting ECG Reason for Exam: SOB Patient Location: E HR:86 bpm ECG Measurements Heart Rate 86 AXIS TX 164 P 23 QRSd 95 QRS 26 QT 380 T 51 QTc 455 Conclusion Sinus rhythm...normal P axis, V-rate 60- 99 No Occlusion PA
--- NOTE | 2025-05-24 11:25 | W.ED.GENAD ---
Discharge Plan Disposition Patient Disposition: Home Discharge Details Clinical Impression: Hypoalbuminemia, Pedal edema Primary Care Provider: Malika Deal ED Provider: Marcelino Schaeffer Home Meds and New Rx's Prescriptions: Continued methadone 10 mg/5 mL solution 165 mg PO DAILY rosuvastatin [Crestor] 20 mg tablet 20 mg PO DAILY tamsulosin [Flomax] 0.4 mg capsule 0.4 mg PO DAILY gabapentin 400 mg capsule 800 mg PO TID famotidine 40 mg tablet 40 mg PO QHS lisinopril 20 mg tablet 20 mg PO DAILY olanzapine 15 mg tablet 15 mg PO QHS metformin 500 mg tablet 500 mg PO DAILY bupropion HCl [Wellbutrin SR] 150 mg tablet sustained-release 12 hr 150 mg PO DAILY Discharge Instructions Additional Instructions: You are seen in the emergency department for your leg swelling. Your x-ray showed no sign of fluid in your lungs. Your albumin is slightly low as we discussed. This is a protein in your blood that helps hold the fluid into your blood. Please maintain a low-salt diet. Please return to the emergency department if you develop shortness of breath chest pain nausea vomiting does not stop or if you have any other concerns. Otherwise please follow-up with your primary care provider. HPI General Date/Time Provider Initiated Documentation: 05/24/25 11:25. HPI Narrative: MDM This is a quite well-appearing normothermic and not tachycardic 59-year-old male with lower extremity edema shortness of breath and productive cough. No fevers nor abnormal lung sounds to suggest pneumonia however will obtain a chest x-ray. Patient does have lower extremity edema but no signs of B-lines nor paroxysmal nocturnal dyspnea to suggest acute heart failure so doubt he requires diuretics nor hospitalization for echocardiogram. Will assess for hypoalbuminemia. Will order a D-dimer to assess risk for PE. Will ensure that he is not in renal failure. Will also ensure he is not in hepatic failure. I considered sepsis however the patient has reassuring vital signs so I did not feel that he requires IV antibiotics nor blood cultures. 1:45 PM Comprehensive metabolic panel with no TANI. Reassuring LFTs. No acute electrolyte abnormalities. Reassuring normal magnesium. CBC with mild normocytic anemia slightly worse compared to prior. No leukocytosis. No thrombocytopenia. Reassuring proBNP. Negative COVID influenza and RSV. Patient had preserved appearing EF and no B-lines. 3:30 PM D-dimer less than 1000 negative based on years criteria. Patient was found to be mildly hypoalbuminemic which certainly could be causing his pedal edema. We discussed that he should return to the ED if he developed shortness of breath fevers or chills. His chest x-ray showed no acute cardiopulmonary process. I updated his niece Yesenia by phone. They have PCP follow-up next month. He understood the return indications and was discharged with an empiric trial of expectant outpatient management. Diagnostic interpretations performed by me: Per my independent interpretation chest x-ray shows: No acute cardiopulmonary Per my independent interpretation EKG shows: Narrow complex normal sinus rhythm at a rate of 86. Normal axis. Intervals within normal limits. No acute injury pattern. No prior for comparison. HPI This is a patient with a history of type 2 diabetes mellitus presenting with leg swelling and respiratory symptoms. The patient was brought in by his daughter. The patient has been experiencing leg swelling for approximately one week. The swelling, initially noticed in the legs, has now extended to the ankles. The patient's daughter suspects fluid retention and has recently purchased Dr. Velasquez's compression socks for him, although he is not currently wearing them. The patient has reduced his coffee intake and consumes about two bottles of water daily. Additionally, the patient has been off metformin for a week and plans to refill the prescription today. His blood sugar levels have not been monitored recently. The patient also reports wheezing and coughing up phlegm with black specks. His daughter attributes these symptoms to exposure to black mold in their previous residence, where he lived for two years. The patient does not experience shortness of breath when lying flat or chest pain. He reported feeling feverish and achy yesterday, leading to a day of rest. The patient recently moved in with his daughter three weeks ago due to an unhealthy living situation with his mother, who has mental health issues. The patient is awaiting an appointment with a primary care provider at the end of June. Exam General: Well-appearing in no acute distress speaking in complete sentences. Head: Normocephalic, atraumatic. Eye: Extraocular eye movements intact. No conjunctival injection. No scleral icterus. Ear, nose, mouth, throat: Grossly normal inspection. Normal voice, handling secretions normally. Neck: Trachea midline. Cardiovascular: Well-perfused distal extremities. Regular rate and rhythm. Respiratory: Nonlabored respiration. Gastrointestinal: Nondistended abdomen. Musculoskeletal: Bilateral 1+ nonpitting lower extremity edema. Moving all 4 extremities spontaneously. Skin: Normal for age and race, grossly normal temperature and turgor. No acute rash. Neurologic: Alert and appropriate, no apparent acute deficits. Psychiatric: Mood and manner are appropriate. Grooming and personal hygiene are appropriate. Related Data Home Medications ?Medication ?Instructions ?Recorded ?Confirmed bupropion HCl 150 mg tablet,12 hr 150 mg PO DAILY 04/19/25 05/24/25 sustained-release (Wellbutrin SR) famotidine 40 mg tablet 40 mg PO QHS 04/19/25 05/24/25 gabapentin 400 mg capsule 800 mg PO TID 04/19/25 05/24/25 lisinopril 20 mg tablet 20 mg PO DAILY 04/19/25 05/24/25 metformin 500 mg tablet 500 mg PO DAILY 04/19/25 05/24/25 methadone 10 mg/5 mL oral solution 165 mg PO DAILY 04/19/25 05/24/25 olanzapine 15 mg tablet 15 mg PO QHS 04/19/25 05/24/25 rosuvastatin 20 mg tablet (Crestor) 20 mg PO DAILY 04/19/25 05/24/25 tamsulosin 0.4 mg capsule (Flomax) 0.4 mg PO DAILY 04/19/25 05/24/25 Allergies Allergy/AdvReac Type Severity Reaction Status Date / Time No Known Allergies Allergy Verified 05/24/25 11:28 General NITIN: 2 PFSH All Active Problems (Updated 05/24/25 @ 15:35 by Marcelino Schaeffer MD) Pedal edema (Acute) Hypoalbuminemia (Acute) Social History Smoking risk assessment performed?: No Alcohol Intake: former Substance use type: former substance user, marijuana and heroin Details: On methadone; occasional marijuana use (smokes) POCUS Exam (ED) Limited Cardiac Exam DATE OF EXAM: 05/24/25 TIME OF EXAM: 13:45 PROVIDER THAT PERFORMED THE STUDY: Marcelino Schaeffer IS THIS A REPEAT EXAM DURING THIS ENCOUNTER: no REASON FOR EXAM: Chest pain VISUALIZED STRUCTURES: Four Chambers and Left ventricle VIEW OBTAINED: Apical 4-Chamber and Parasternal long-axis PERTINENT FINDINGS/IMPRESSION: No RV dilation DIFFERENTIAL DIAGNOSES: good squeeze, RV less than LV. Difficult obtaining aortic outflow track and subxiphoid views. Exam complete
--- NOTE | 2025-05-24 12:00 | DI.RAD_ITS ---
Exam(s) XR CHEST 2V PA LATERAL EXAM: XR CHEST 2V PA LATERAL CLINICAL HISTORY: Chest pain TECHNIQUE: 2D digital imaging was performed. Two views. COMPARISON: No exams were available for comparison FINDINGS: HEART: Normal size. Aorta: Not dilated. PULMONARY VASCULATURE: Normal. MEDIASTINUM: Unremarkable. LUNGS: Linear scar atelectasis versus scarring at the lung bases. The lungs are otherwise clear. PLEURAL SPACE: No pleural effusion or pneumothorax. BONE:Unremarkable for age. SOFT TISSUES: Unremarkable. IMPRESSION: No acute abnormality. DATA REPOSITORY: RADIATION DOSE DELIVERED:
[2025-05-24 13:03] LABS: Abs Immature Grans 0.01 10^3/uL (0.0-0.06); HCT 39.5 % (40.0-50.0); HGB 13.2 g/dL (13.5-17.5); Immature Grans % 0.2 %; MCH 29.1 pg (27.0-33.0); MCHC 33.4 % (32.0-36.0); MCV 87 fL (80-95); MPV 9.9 fL (8.0-11.0); Platelet Count 200 10^3/uL (130-400); RBC 4.54 10^6/uL (4.36-5.78); RDW 12.4 % (11.8-14.1); RDW-SD 39.6 fL; WBC 6.35 10^3/uL (4.4-10.8)
[2025-05-24 13:18] LABS: COVID-19 PCR Negative (Negative); RSV PCR Negative (Negative)
[2025-05-24 13:23] LABS: ALT 26 U/L (16-63); AST 21 U/L (15-37); Albumin 3.3 g/dL (3.4-5.0); Alkaline Phosphatase 84 U/L (46-116); Anion Gap 7.5 mmol/L (3-11); BUN 13 mg/dL (7-18); Bilirubin, Total 0.2 mg/dL (0.2-1.0); CO2 27.5 mmol/L (21.0-32.0); Calcium 8.6 mg/dL (8.5-10.1); Chloride 105 mmol/L (98-107); Estimated GFR 104.83 (mL/min/1.73m2); Glucose 153 mg/dL (74-106); Magnesium 2.1 mg/dL (1.8-2.4); NT-proBNP 36 pg/mL (<300); Potassium 4.1 mmol/L (3.5-5.1); Sodium 140 mmol/L (136-145); Total Protein 6.6 g/dL (6.4-8.2)
[2025-05-24 15:02] LABS: D-Dimer 727 ng/mlFEU (<500)
== END 2025-05-24 15:59 | disposition home or self-care (01) ==
PROVIDERS: Emergency Provider Emergency Medicine; PCP Nurse Practitioner Family
DX: E88.09 Other disorders of plasma-protein metabolism, not elsewhere classified (principal); R60.0 Localized edema; E11.9 Type 2 diabetes mellitus without complications; Z79.84 Long term (current) use of oral hypoglycemic drugs
CPT/HCPCS: 36415; 80053; 87637; 93005; 93308; 99284; 71046; 83735; 83880; 85025; 85379; 93010

== ENCOUNTER 2025-06-07 09:20 | Outpatient (CLI) | payer MEDICARE, MEDICAID, SELFPAY ==
--- NOTE | 2025-06-07 09:15 | RT.EKG_ITS ---
APPROVED REPORT Exam: Resting ECG Reason for Exam: high risk medication use Patient Location: O HR:75 bpm ECG Measurements Heart Rate 75 AXIS ND 163 P 61 QRSd 101 QRS 49 QT 395 T 64 QTc 442 Conclusion Sinus rhythm...normal P axis, V-rate 50- 99 Normal Electrocardiogram
== END 2025-06-07 09:21 | disposition home or self-care (01) ==
LOC: CARDOPNVT 09:20
PROVIDERS: PCP Nurse Practitioner Family; Visit Provider Family Medicine
DX: Z79.899 Other long term (current) drug therapy (principal)
CPT/HCPCS: 93005; 93010

== ENCOUNTER 2025-06-13 11:23 | Emergency (ER) | payer MEDICARE, MEDICAID, SELFPAY ==
[2025-06-13 11:39] VITALS: BP 143/86; PULSE 84; RESP 18; TEMP 36.7; O2SAT 97
[2025-06-13 11:45] VITALS: BP 143/86; PULSE 84; RESP 18; TEMP 36.7; O2SAT 93
--- NOTE | 2025-06-13 11:59 | W.ED.GENAD ---
Discharge Plan Disposition Patient Disposition: Home Condition: Good Discharge Details Clinical Impression: Pedal edema Primary Care Provider: Malika Deal ED Provider: Namrata Benson Home Meds and New Rx's Prescriptions: Continued methadone 10 mg/5 mL solution 165 mg PO DAILY rosuvastatin [Crestor] 20 mg tablet 20 mg PO DAILY tamsulosin [Flomax] 0.4 mg capsule 0.4 mg PO DAILY gabapentin 400 mg capsule 800 mg PO TID famotidine 40 mg tablet 40 mg PO QHS lisinopril 20 mg tablet 20 mg PO DAILY olanzapine 15 mg tablet 15 mg PO QHS metformin 500 mg tablet 500 mg PO DAILY bupropion HCl [Wellbutrin SR] 150 mg tablet sustained-release 12 hr 150 mg PO DAILY Discharge Instructions Instructions: Lymphedema (DC) Additional Instructions: Your labs are reassuring here today. No evidence to suggest issues with your kidney, your heart. Please continue with compression socks as this will help with the swelling in your legs. Please encourage elevation of your lower extremities. Please follow-up with your primary care in the next 1 to 2 weeks for reevaluation. This may be associated with some of your diet so please watch how much salt you are taking in. Please also make sure you are staying well-hydrated in this hot weather. If you develop shortness of breath, chest pain, increased pain or other new/worsening symptoms please to care urgently once again. Referrals: Malika Deal [Primary Care Provider, Medicine] Discharge Data Discharge Date/Time-TO BE ENTERED AT DEPARTURE: 06/13/25 16:15 HPI General Date/Time Provider Initiated Documentation: 06/13/25 11:47. Limitations to Documentation: no limitations. Information obtained by: patient, RN notes reviewed and old records reviewed. History of Present Illness 59 year old M presents to the emergency department with the chief complaint of bilateral lower extremity edema, Quality is described as other (no pain, just sweollen), and is localized to the left, right and lower extremity. Patient started experiencing this day(s) and it has been constant. No relieving factors improve symptom(s), No exacerbating factors reported (has been eating a lot off [employer]) . Patient notes denies chest pain, diaphoresis, fever/chills, loss of appetite, rash, shortness of breath and weakness. Patient did receive the following treatments prior to arrival, none Related Data Home Medications ?Medication ?Instructions ?Recorded ?Confirmed bupropion HCl 150 mg tablet,12 hr 150 mg PO DAILY 04/19/25 06/13/25 sustained-release (Wellbutrin SR) famotidine 40 mg tablet 40 mg PO QHS 04/19/25 05/24/25 gabapentin 400 mg capsule 800 mg PO TID 04/19/25 06/13/25 lisinopril 20 mg tablet 20 mg PO DAILY 04/19/25 06/13/25 metformin 500 mg tablet 500 mg PO DAILY 04/19/25 06/13/25 methadone 10 mg/5 mL oral solution 165 mg PO DAILY 04/19/25 06/13/25 olanzapine 15 mg tablet 15 mg PO QHS 04/19/25 06/13/25 rosuvastatin 20 mg tablet (Crestor) 20 mg PO DAILY 04/19/25 06/13/25 tamsulosin 0.4 mg capsule (Flomax) 0.4 mg PO DAILY 04/19/25 06/13/25 Allergies Allergy/AdvReac Type Severity Reaction Status Date / Time No Known Allergies Allergy Verified 06/13/25 11:46 General Stated Complaint: Cellulitis NITIN: 3 Review of Systems Constitutional Constitutional: Reports as per HPI, Denies chills, Denies fever(s), Denies headache(s), Denies lethargy and Denies poor appetite ENT Ears, Nose, Mouth, and Throat: Denies dizziness and Denies headache(s) Cardiovascular Cardiovascular: Reports as per HPI, Denies dyspnea and Denies dyspnea on exertion Respiratory Respiratory: Reports as per HPI, Denies chest congestion, Denies cough, Denies pain on inspiration, Denies pain with cough, Denies dyspnea and Denies dyspnea on exertion Gastrointestinal Gastrointestinal: Reports as per HPI, Denies abdominal pain, Denies diarrhea, Denies nausea and Denies vomiting Genitourinary Genitourinary: Denies system reviewed and no additional complaints, except as documented (denies change in urinary habits) Musculoskeletal Musculoskeletal: Reports as per HPI and Denies back pain Integumentary/Breasts Skin/Breast: Reports as per HPI and Denies rash Neurologic Neurologic: Reports as per HPI, Denies dizziness and Denies headache(s) Exam Const General: cooperative, healthy appearing, comfortable, no acute distress and well developed Nutritional Appearance: well nourished and overweight Orientation: alert, awake and oriented x3 Resp Effort & Inspection: normal respiratory effort, able to speak in complete sentences and no respiratory distress Auscultation: clear to auscultation bilaterally, no rales, no rhonchi and no wheezes Cardio Rate: regular rate Rhythm: regular rhythm Heart Sounds: S1 normal and S2 normal GI Inspection: normal to inspection, no edema and non-distended Palpation: soft and nontender Skin General skin exam: erythema (BLE pinkness with edema) Neuro General: patient alert, patient awake and patient oriented x3 Cognition: normal cognition Speech: speech normal Gait: normal gait Extrem General: normal to inspection, capillary refill normal, no calf tenderness, normal gait, no calf tenderness bilaterally, pedal edema bilaterally non-pitting and 2+ and other (intact distal pulses) Course Vital Signs Vital signs: Vital Signs Temperature 36.7 C 06/13/25 11:39 Pulse 84 06/13/25 11:39 Respiratory Rate 18 06/13/25 11:39 Blood Pressure 143/86 H 06/13/25 11:39 Pulse Oximetry 97 06/13/25 11:39 Temperature 36.7 C 06/13/25 11:45 Temperature Source Oral 06/13/25 11:45 Pulse 84 06/13/25 11:45 Respiratory Rate 18 06/13/25 11:45 Blood Pressure 143/86 H 06/13/25 11:45 Blood Pressure Position Sitting 06/13/25 11:45 Pulse Oximetry 93 06/13/25 11:45 Oxygen Delivery Method Room Air 06/13/25 11:45 Oxygen Flow Rate 0 06/13/25 11:39 Pain Level 7 06/13/25 11:45 Medical Decision Making Patient is a pleasant 59 year old male [facility] significant for BLE pedal edema, hypoalbuminemia, presenting with c/c of BLE edema. States that this is non-tender, has been present for the past few days. Denies any SOB or CP. No recent illness. No pain or cramping in his calves. States he has been eating a lot more peanutbutter but otherwise, no recent change in diet or medication. Is not on a diuretic. No change in bowel or bladder habits. On exam, patient appears non-toxic, hemodynamically stable. Intact distal pulses, sensation is intact. He has BLE edema, equal bilaterally. [place] but non-tender, no signficant warmth. No focal area of pain or fluctuance to suggest abscess. Equal in distrubution bilaerally, does not appear infectious. No edema above the knees. No indication of respriatory involvement, lungs are clear. Patient has edema exacerbation, he states this has been an ongoing issue. Exam does not appear consistent with DVT, cellulitis. More concerned fo rpossible CHF exacerbation. Will give dose of lasix and obtain labs. Do not see indication for imaging of the legs at this time. WIll get CXR to evaluate for possible fluid overload although I find this unlikely with the lack of SOB or BARRIENTOS, exam is reassuring. Patient had good urinary output, feeling slightly improved. Lab without signficant abnormality. CXR shows no acute abnormalities. Discussed with patient. Likely associated with more of a chronic BLE edema, possible lymphadenopathy, encouraged f/u with PCP. Supprotive care with elevation, compression. Gave compression how. Return precautions discussed. Discssued dietary causes, weather. All of his questions and concerns were addressed, he is in agreement iwth this plan. PFSH All Active Problems (Updated 06/13/25 @ 16:08 by NAT Solitario) Pedal edema (Acute) Hypoalbuminemia (Acute) Social History Smoking/Tobacco Use Status: Former Tobacco Use Smoking risk assessment performed?: Yes Alcohol Intake: former Substance use type: former substance user, marijuana and heroin Details: On methadone; state he stopped using marijuana for 6 months now
--- NOTE | 2025-06-13 13:15 | DI.RAD_ITS ---
Exam(s) XR CHEST 2V PA LATERAL EXAM: XR CHEST 2V PA LATERAL CLINICAL HISTORY: BLE edema TECHNIQUE: 2D digital imaging was performed. Two views. COMPARISON: CR XR CHEST 2V PA LATERAL from 05/24/2025 FINDINGS: HEART: Normal size. Aorta: Not dilated. PULMONARY VASCULATURE: Normal. MEDIASTINUM: Unremarkable. LUNGS: Clear. PLEURAL SPACE: No pleural effusion or pneumothorax. BONE:Unremarkable for age. SOFT TISSUES: Unremarkable. IMPRESSION: No acute abnormality. DATA REPOSITORY: RADIATION DOSE DELIVERED:
[2025-06-13] MEDS: Furosemide 40 MG/4 ML VIAL IVP (13:54)
[2025-06-13 13:55] LABS: Abs Immature Grans 0.02 10^3/uL (0.0-0.06); HCT 40.1 % (40.0-50.0); HGB 13.5 g/dL (13.5-17.5); Immature Grans % 0.3 %; MCH 28.8 pg (27.0-33.0); MCHC 33.7 % (32.0-36.0); MCV 86 fL (80-95); MPV 9.5 fL (8.0-11.0); Platelet Count 249 10^3/uL (130-400); RBC 4.68 10^6/uL (4.36-5.78); RDW 12.0 % (11.8-14.1); RDW-SD 37.6 fL; WBC 7.87 10^3/uL (4.4-10.8)
[2025-06-13 14:03] VITALS: BP 133/67; PULSE 78; RESP 18; O2SAT 98
[2025-06-13 14:06] VITALS: BP 137/70
[2025-06-13 15:02] LABS: ALT 34 U/L (16-63); AST 25 U/L (15-37); Albumin 3.8 g/dL (3.4-5.0); Alkaline Phosphatase 100 U/L (46-116); Anion Gap 6.9 mmol/L (3-11); BUN 11 mg/dL (7-18); Bilirubin, Total 0.3 mg/dL (0.2-1.0); CO2 29.1 mmol/L (21.0-32.0); Calcium 9.4 mg/dL (8.5-10.1); Chloride 103 mmol/L (98-107); Estimated GFR 100.69 (mL/min/1.73m2); Glucose 83 mg/dL (74-106); Magnesium 2.1 mg/dL (1.8-2.4); NT-proBNP 37 pg/mL (<300); Potassium 4.1 mmol/L (3.5-5.1); Sodium 139 mmol/L (136-145); Total Protein 7.5 g/dL (6.4-8.2); Troponin I 7 ng/L (<or=76)
[2025-06-13 15:50] VITALS: PULSE 82; RESP 14; O2SAT 98
[2025-06-13 16:10] VITALS: BP 149/78; PULSE 82; RESP 14; O2SAT 95
[2025-06-13 16:33] LABS: Troponin I 6 ng/L (<or=76)
== END 2025-06-13 16:15 | disposition home or self-care (01) ==
PROVIDERS: Emergency Provider Physician Assistant; PCP Nurse Practitioner Family
DX: R60.0 Localized edema (principal); R03.0 Elevated blood-pressure reading, without diagnosis of hypertension
CPT/HCPCS: 99284 ×2; 96374; 36415; 80053; 71046; 83735; 83880; 84484; 85025; J1938

== ENCOUNTER → 2025-09-05 02:28 | Outpatient (CLI) | payer MEDICARE, MEDICAID, SELFPAY ==
--- NOTE | 2025-09-05 | DI.CT_ITS ---
Exam(s) CT HEAD WO EXAM: CT HEAD WO CLINICAL HISTORY: HX TBI [id number]. TECHNIQUE: Imaging Protocol: Axial computed tomography images with coronal and sagittal reformatted images were created and reviewed COMPARISON: No exams were available for comparison FINDINGS: There are no skull fractures. There is no fluid in the visualized paranasal sinuses. There is no evidence of intracranial hemorrhage, mass effect, or shift of midline structures. There are no extra-axial fluid collections. The ventricles are not enlarged or shifted and there is no blood within the ventricular system nor within the basal cisterns. IMPRESSION: No acute intracranial findings on this noninfused CT scan of the brain. Elbow myself to ER 09/05/2025 at 8:02 a.m. RADIATION DOSE DELIVERED: 949.85mGy.cm Total DLP DATA REPOSITORY: All CT scans at this facility are submitted to the National Radiology Data Registry (NRDR) Dose Index Registry (DIR) with the [employer] ([employer]). RADIATION OPTIMIZATION: All CT scans at this facility use at least one of these dose optimization techniques: automated exposure control; mA and/or kV adjustment per patient size (includes targeted exams where dose is matched to clinical indication); or iterative reconstruction.
== END ==
LOC: DI 02:28
PROVIDERS: PCP Nurse Practitioner Family; Visit Provider Nurse Practitioner Family
DX: Z87.820 Personal history of traumatic brain injury (principal)
CPT/HCPCS: 70450